=== PATIENT | female | born 1985 | race Two or more races ===

== ENCOUNTER 2017-09-24 10:58 | Day surgery (SDC) | payer OTHER ==
[~2017-09-24] VITALS: Ht 165.1 cm; Wt 82.8 kg
[2017-09-24 11:47] VITALS: Ht 165.1 cm; Wt 82.8 kg
[2017-09-24 12:14] VITALS: BP 118/56; PULSE 83; RESP 12
[2017-09-24] MEDS ORDERED: LIDOCAINE 4% SOLUTION 50 ML BTL ONE (13:10)
--- NOTE | 2017-09-24 13:48 | OPPN ---
Date/Time of Note Date/Time of Note DATE: 09/24/17 TIME: 13:46 Operative Report Preoperative Diagnosis Change in bowel habits abdominal pain with diarrhea Postoperative Diagnosis Normal EGD Operation/Procedure Performed EGD biopsy of duodenum and random gastric biopsy Surgeon see signature line assistant pastry chef None Anesthesia: moderate sedation (Versed 3 mg fentanyl 75 mcg moderate sedation 30 minutes for combined procedure) Estimated blood loss: none Transfusion Required none Specimen Random gastric biopsy duodenal biopsy to rule out celiac sprue Grafts/Implants None none Complications none BEBA GREENBERG MD Sep 24, 2017 13:48
--- NOTE | 2017-09-24 13:50 | OPPN ---
Date/Time of Note Date/Time of Note DATE: 09/24/17 TIME: 13:49 Operative Report Preoperative Diagnosis Abdominal pain and change in bowel habits diarrhea IBS Postoperative Diagnosis Normal colonoscopy Operation/Procedure Performed Colonoscopy Surgeon see signature line emergency room physician assistant None Anesthesia: moderate sedation (Versed 2 mg fentanyl 50 mcg total. For moderate sedation combined procedure 30 minutes) Estimated blood loss: none Transfusion Required none Specimen None Grafts/Implants none Complications none BEBA GREENBERG MD Sep 24, 2017 13:50
[2017-09-24] MEDS ORDERED: MIDAZOLAM 1 MG/ML 2 ML INJ ONE ×5 (13:57→13:58)
[2017-09-24] MEDS ORDERED: FENTAnyl 50 MCG/ML VIAL ONE ×2 (13:58)
[2017-09-24 14:10] VITALS: BP 119/73; PULSE 83; RESP 16
--- NOTE | 2017-09-25 07:54 | GILP ---
DATE OF PROCEDURE: PREOPERATIVE DIAGNOSIS: Abdominal pain and diarrhea, change in bowel habits. PROCEDURE DONE: Esophagogastroduodenoscopy and biopsy of the stomach and duodenum. POSTOPERATIVE DIAGNOSIS: Normal upper endoscopy. DESCRIPTION OF PROCEDURE: The patient was put in left lateral decubitus after obtaining informed co nsent, was sedated, monitored on oximetry, EKG, blood pressure. She received 3 mg IV Versed and 75 mcg of fentanyl for EGD and advanced an Olympus video upper endoscope easily into the esophagus, sto mach and duodenum. Esophagus in its entire length is normal. GE junction examined thoroughly and t hen by retroflexion, also cardia and fundus normal, body and antrum normal, but random biopsies were done for H. pylori and entered the duodenum easily. Examination of the duodenum up to the second p art normal and biopsies were done to rule out any celiac sprue from second and third part. Upon rem oval of scope, patient had no complication. Total moderate sedation of time for both procedures was 30 minutes. Dictated By: BEBA MAYO Conf#: [id number] DID#: [id number] CC: BEBA GREENBERG M.D.;*EndCC*
--- NOTE | 2017-09-25 07:54 | GILP ---
DATE OF PROCEDURE: PREOPERATIVE DIAGNOSIS: Abdominal pain, diarrhea, change in bowel habits, suspected irritable bowel syndrome, rule out colitis. PROCEDURE DONE: Colonoscopy up to cecum. POSTOPERATIVE DIAGNOSIS: Essentially normal colonoscopy. DESCRIPTION OF PROCEDURE: After obtaining informed consent, the patient was sedated with another 2 mg IV Versed and 50 mcg of fentanyl, total moderate sedation time for both procedures, 30 minutes. Advanced an Olympus video colonoscope all the way to cecum easily. Examination of the appendiceal o pening and ileocecal valve were identified. These were normal. Cecum, ascending colon, transverse colon normal. Descending colon, sigmoid colon normal. In the rectum including retroflexion was nor mal. Upon removal of scope, patient had no complication. At present, I would recommend her to continue probiotics and high fiber diet. Follow as outpatient for upper endoscopy biopsy report and repeat colonoscopy in 10 years. Dictated By: BEBA MAYO Conf#: [id number] DID#: [id number]
== END 2017-09-24 14:26 | disposition home or self-care (01) ==
LOC: GIL 10:58
PROVIDERS: ATTEND Internal Medicine
DX: R19.4 Change in bowel habit (principal)
CPT/HCPCS: 84703; 88305; J2250; J3010